=== PATIENT | male | born 1975 | race Caucasian/White ===

== ENCOUNTER 2016-07-28 07:27 | Emergency (ER) | payer OTHER ==
[~2016-07-28] VITALS: Ht 203.2 cm; Wt 126.5 kg
[2016-07-28] MEDS ORDERED: ONDANSETRON 2MG/ML, 2ML ONE (08:29)
[2016-07-28] MEDS ORDERED: HYDROmorphone 1 MG/ML, 1ML ONE (08:29)
[2016-07-28] MEDS ORDERED: KETOROLAC 30 MG/1 ML ONE (08:29)
[2016-07-28] MEDS ORDERED: HYDROmorphone 1 MG/ML, 1ML IV ONE (08:30)
[2016-07-28] MEDS ORDERED: DIAZEPAM 5 MG/ML, 10ML VIAL IV ONE (08:30)
[2016-07-28] MEDS ORDERED: ONDANSETRON 2MG/ML, 2ML IVPush ONE (09:00)
[2016-07-28] MEDS ORDERED: KETOROLAC 30 MG/1 ML IVPush ONE (09:00)
[2016-07-28 10:07] VITALS: BP 120/72
== END 2016-07-28 10:11 | disposition home or self-care (01) ==
LOC: ED 10:05
DX: S39.012A Strain of muscle, fascia and tendon of lower back, initial encounter (principal); M54.42 Lumbago with sciatica, left side; M46.1 Sacroiliitis, not elsewhere classified; G89.29 Other chronic pain; X58.XXXA Exposure to other specified factors, initial encounter; Y93.89 Activity, other specified; Y99.8 Other external cause status; Y92.89 Other specified places as the place of occurrence of the external cause
CPT/HCPCS: 96374; 96375; 99284; J1170; J1885; J2405; J3360